=== PATIENT | female | born 1990 | race Caucasian/White ===

== ENCOUNTER 2017-07-07 20:02 | Emergency (ER) | payer BC, OTHER ==
[2017-07-08 00:38] VITALS: RESP 16
--- NOTE | 2017-07-08 00:41 | US ---
EXAMINATION TYPE: US OB <=14 wks transvag DATE OF EXAM: 07/08/2017 COMPARISON: NONE CLINICAL HISTORY: Pain. Bleeding EXAM PERFORMED: Transvaginal (TV) and Transabdominal (TA) EXAM MEASUREMENTS: GESTATIONAL AGE / DATING Physician Established: Not yet established Dates by LMP: (8 weeks/2 days) EDC: 02/14/2018 Dates by First Scan: No previous this is first scan Dates by Current Scan for: No IUP seen at this time MATERNAL ANATOMY Uterus: 8.3 x 3.9 x 4.8 cm Right Ovary: 4.0 x 1.6 x 1.5 cm Left Ovary: 3.1 x 1.5 x 2.6 cm Post CDS / Adnexa: Hypoechoic area seen adjacent to right ovary no peristalsis seen within. Presence of free fluid: yes GESTATION / SURVEY IUP: No IUP seen at this time Beta HcG (if available): Not available at this time No IUP seen at this time. Hypoechoic area seen adjacent to right ovary no peristalsis seen within. IMPRESSION: Uterus is empty. There is free fluid in the cul-de-sac. There is a 2.7 x 1.9 cm solid area at the rig ht ovary and the possibility of ectopic cannot be excluded.
--- NOTE | 2017-07-08 01:16 | ED ---
Female Urogenital HPI - General Chief complaint: Vaginal Bleeding Stated complaint: Female Time Seen by Provider: 07/07/17 22:34 Source: patient Mode of arrival: ambulatory Limitations: no limitations - History of Present Illness Initial comments: 26-year-old female patient presents to the emergency department seeking second opinion on her ultrasound results. Patient states that she is approximately 8 weeks and has been having vaginal bleeding over the last couple of days. She states that she was seen and evaluated at the hospital in [place], [place] and was diagnosed with an ectopic today. She states that this was confirmed by ultrasound. However she states that she has been to the hospital a couple of times throughout the and has received mixed results on her ultrasounds. She states that she is not currently having any pain however still is having some mild vaginal bleeding. She states that she is using only one pad per day. She states that she does have an appointment with her IN HOME AIDE in the morning however wanted a confirmatory ultrasound here before she goes to that appointment. She denies any hematuria, dysuria, urinary frequency, urinary urgency. She denies any fevers or chills. Denies any low back pain. Patient denies any recent rash, shortness breath, chest pain, nausea, vomiting, diarrhea, constipation, numbness, tingling, dizziness, weakness, headache, visual changes, or any other complaints. - Related Data Home Medications Medication Instructions Recorded Confirmed Buprenorphine HCl/Naloxone HCl 0.25 film SUBLINGUAL DAILY 07/07/17 07/07/17 [Suboxone 8 mg-2 mg Sl Film] Haa-Ixkx-Gvdak Acid 1 cap PO DAILY 07/07/17 07/07/17 [-U Capsule (formulary)] Allergies Allergy/AdvReac Type Severity Reaction Status Date / Time No Known Allergies Allergy Verified 07/07/17 22:24 Review of Systems ROS Statement: Those systems with pertinent positive or pertinent negative responses have been documented in the HPI. ROS Other: All systems not noted in ROS Statement are negative. Past Medical History Past Medical History: No Reported History History of Any Multi-Drug Resistant Organisms: None Reported Past Surgical History: Section Past Psychological History: No Psychological Hx Reported Smoking Status: Current every day smoker Past Alcohol Use History: None Reported Past Drug Use History: None Reported General Exam Limitations: no limitations General appearance: alert, in no apparent distress, other (Physical well- developed, well-nourished adult female patient in no acute distress. Vital signs upon presentation are temperature 99.2F, pulse 89, respirations 17, blood pressure 112/56, pulse ox 100% on room air.) Eye exam: Present: normal appearance, PERRL, EOMI. Absent: scleral icterus, conjunctival injection, periorbital swelling ENT exam: Present: normal exam, normal oropharynx, mucous membranes moist Respiratory exam: Present: normal lung sounds bilaterally. Absent: respiratory distress, wheezes, rales, rhonchi, stridor Cardiovascular Exam: Present: regular rate, normal rhythm, normal heart sounds. Absent: systolic murmur, diastolic murmur, rubs, gallop, clicks GI/Abdominal exam: Present: soft, normal bowel sounds. Absent: distended, tenderness, guarding, rebound, rigid Neurological exam: Present: alert, oriented X3, CN II-XII intact Psychiatric exam: Present: normal affect, normal mood Skin exam: Present: warm, dry, intact, normal color. Absent: rash Course Vital Signs 07/07/17 07/08/17 07/08/17 20:47 00:36 01:28 Temperature 99.2 F 98.1 F Pulse Rate 89 78 84 Respiratory 17 16 16 Rate Blood Pressure 112/56 104/53 117/61 O2 Sat by Pulse 100 97 99 Oximetry Medical Decision Making - Medical Decision Making 26-year-old female patient presented to the emergency department today requesting ultrasound to confirm ectopic . Physical examination was unremarkable. Abdomen was nontender. Ultrasound did show no intrauterine at this time and a mass near the right ovary that could be ectopic . Patient reports that her hCG level yesterday was 600. Patient does have an appointment with her IN HOME AIDE in the morning. Patient denies any significant abdominal pain at this time. Denies any fever or chills. She'll be discharged home to keep this appointment. She is instructed to make sure she does not miss the appointment. She is instructed to report to the nearest emergency department for any new, worsening, or concerning symptoms. She verbalizes understanding and agrees with this plan. - Radiology Data Radiology results: report reviewed, image reviewed Ultrasound was obtained, the report was reviewed in its entirety. Impression by Dr. Nelson shows uterus is empty. There is free fluid in the cul-de-sac. There is a 2.7 x 1.9 cm solid area of the right ovary and the possibility of ectopic cannot be excluded. Disposition Clinical Impression: Ectopic Disposition: HOME SELF-CARE Condition: Good Instructions: Ectopic (ED) Additional Instructions: Follow-up with your IN HOME AIDE at 9 AM as you have planned. Do not miss this appointment. Present to the nearest emergency department if your symptoms worsen, change, or if he develop any new symptoms. Referrals: None,Stated [Primary Care Provider] - 1-2 days Time of Disposition: 01:16
[2017-07-08 01:40] VITALS: BP 117/61; PULSE 84; TEMP 98.1
== END 2017-07-08 01:32 | disposition home or self-care (01) ==
LOC: EC 20:02
DX: O00.90 Unspecified ectopic pregnancy without intrauterine pregnancy (principal); O99.331 Smoking (tobacco) complicating pregnancy, first trimester; F17.200 Nicotine dependence, unspecified, uncomplicated; Z79.899 Other long term (current) drug therapy; Z3A.08 8 weeks gestation of pregnancy
CPT/HCPCS: 76801; 76817; 99284